=== PATIENT | female | born 1955 | race Caucasian/White ===

== ENCOUNTER 2016-05-21 07:52 | Emergency (ER) | payer OTHER ==
[~2016-05-21] VITALS: Ht 162.6 cm; Wt 61.2 kg
[2016-05-21 07:58] VITALS: BP 137/94; PULSE 66; RESP 18; TEMP 98.2; O2SAT 96
--- NOTE | 2016-05-21 08:00 | NUR ---
Pt report received from JOSÉ MANUEL Laguerre. Pt placed to ER bed 03 and to gown. Pt c/o LLQ abd pain that radiates to Left back. +Nause, -vomiting, -diarrhea. Family member at bedside.
--- NOTE | 2016-05-21 08:10 | NUR ---
Dr. Javier at bedside to assess pt.
[2016-05-21] MEDS ORDERED: DIPHENHYDRAMINE INJ 50 MG/ML VIAL IVP ONE (08:15)
[2016-05-21] MEDS ORDERED: PIPERACILLIN/TAZO 3.38 GM in NS 50 ML IV ONE (08:15)
[2016-05-21] MEDS ORDERED: MORPHINE 4 MG/ML INJ. SYRINGE IVP ONE (08:15)
[2016-05-21] MEDS ORDERED: PIPERACILLIN/TAZOBACTAM 3.375 GM/VIAL (ZOSYN) IV ONE (08:31)
[2016-05-21 08:40] LABS: HEMATOCRIT 37.1 % (36-48); HEMOGLOBIN 12.5 g/dL (12.0-16.0); MEAN CORPUSCULAR HEMOGLOBIN 31 pg (27-31); MEAN CORPUSCULAR HGB CONC 34 % (32-36); MEAN CORPUSCULAR VOLUME 92 fL (79.0-98.0); PLATELET COUNT (AUTO) 252 K/uL (130-430); RED BLOOD CELL COUNT(AUTO) 4.04 MIL/uL (4.2-6.2); RED CELL DISTRIBUTION WIDTH 13.4 % (9.0-15.0); WHITE BLOOD COUNT (AUTO) 7.1 K/uL (4.8-10.8)
[2016-05-21 08:41] LABS: BASOPHILS % (AUTO) 0.2 % (0.0-2.0); EOSINOPHILS % (AUTO) 0.3 % (0.0-4.0); LYMPHOCYTES # (AUTO) 0.9 K/uL (1.0-5.5); MONOCYTES # (AUTO) 0.3 K/uL (0.0-1.0); MONOCYTES % (AUTO) 3.6 % (1.7-9.3); NEUTROPHILS # (AUTO) 5.9 K/uL (1.8-7.7); NEUTROPHILS % (AUTO) 82.9 % (40.0-70.0)
[2016-05-21 08:42] LABS: PROTHROMBIN TIME 11.1 SECS (9.5-12.5)
[2016-05-21 08:44] LABS: CREATININE 0.83 mg/dL (0.55-1.30); POTASSIUM 3.8 mmol/L (3.5-5.1)
[2016-05-21 08:52] LABS: TOTAL BILIRUBIN 0.5 mg/dL (0.0-1.0); TOTAL PROTEIN, SERUM 7.6 g/dL (6.4-8.3)
[2016-05-21 09:58] VITALS: BP 128/76; PULSE 80; RESP 20; TEMP 98.2; O2SAT 100
--- NOTE | 2016-05-21 09:58 | NUR ---
Patient given written and verbal discharge instructions and verbalizes understanding. ER MD discussed with patient the results and treatment provided. Patient in stable condition. ID arm band removed. IV catheter removed intact and dressing applied, no active bleeding. Rx of Promethizine and codeine, Augmentin given. Patient educated on pain management and to follow up with PMD. Pain Scale 0/10. Opportunity for questions provided and answered.
== END 2016-05-21 09:58 | disposition home or self-care (01) ==
LOC: SED 07:52
DX: N20.0 Calculus of kidney (principal); I10 Essential (primary) hypertension
CPT/HCPCS: 36415; 71010; 74176; 80053; 83605; 83690; 85025; 85610; 87040; 96365; 96375; 99285; J1200; J2270; J2543

== ENCOUNTER 2016-11-27 08:20 | Emergency (ER) | payer OTHER ==
[~2016-11-27] VITALS: Ht 162.6 cm; Wt 61.2 kg
[2016-11-27 08:20] VITALS: BP_SYST 146
[2016-11-27 09:17] LABS: BASOPHILS % (AUTO) 0.5 % (0.0-2.0); CALCIUM 8.4 mg/dL (8.4-11.0); CREATININE 0.65 mg/dL (0.55-1.30); EOSINOPHILS # (AUTO) 0.1 K/uL (0.0-0.4); EOSINOPHILS % (AUTO) 2.2 % (0.0-4.0); HEMATOCRIT 37.7 % (36-48); HEMOGLOBIN 12.5 g/dL (12.0-16.0); LYMPHOCYTES # (AUTO) 0.9 K/uL (1.0-5.5); LYMPHOCYTES % (AUTO) 27.4 % (20.5-51.5); MEAN CORPUSCULAR HEMOGLOBIN 32 pg (27-31); MEAN CORPUSCULAR HGB CONC 33 % (32-36); MEAN CORPUSCULAR VOLUME 97 fL (79.0-98.0); MONOCYTES # (AUTO) 0.3 K/uL (0.0-1.0); MONOCYTES % (AUTO) 8.2 % (1.7-9.3); NEUTROPHILS # (AUTO) 1.9 K/uL (1.8-7.7); NEUTROPHILS % (AUTO) 61.7 % (40.0-70.0); PLATELET COUNT (AUTO) 178 K/uL (130-430); POTASSIUM 3.9 mmol/L (3.5-5.1); RED BLOOD CELL COUNT(AUTO) 3.91 MIL/uL (4.2-6.2); RED CELL DISTRIBUTION WIDTH 12.4 % (9.0-15.0); WHITE BLOOD COUNT (AUTO) 3.2 K/uL (4.8-10.8)
[2016-11-27 09:22] LABS: ALBUMIN 3.4 g/dL (3.4-4.8); TOTAL BILIRUBIN 0.4 mg/dL (0.0-1.0); TOTAL PROTEIN, SERUM 6.7 g/dL (6.4-8.3)
[2016-11-27 09:41] VITALS: BP_SYST 146
== END 2016-11-27 09:41 | disposition home or self-care (01) ==
LOC: SED 08:20
DX: M54.12 Radiculopathy, cervical region (principal); I10 Essential (primary) hypertension; Z90.89 Acquired absence of other organs
CPT/HCPCS: 36415; 72050-TC; 80053; 84484; 85025; 93005; 99285

== ENCOUNTER 2019-02-20 12:40 | Inpatient (IN) | payer BC, OTHER ==
[~2019-02-20] VITALS: Ht 162.6 cm; Wt 76.7 kg
[2019-02-20 12:40] VITALS: BP_SYST 156
[2019-02-20] MEDS ORDERED: NACL 0.9% 1,000 ML IV ONE (12:59)
[2019-02-20] MEDS ORDERED: KETOROLAC TROMETHAMINE 30 MG VIAL IVP ONE (13:00)
[2019-02-20 13:29] LABS: BASOPHILS % (AUTO) 0.6 % (0.0-2.0); BILIRUBIN,URINE NEGATIVE (NEGATIVE); BLOOD, URINE 3+ (NEGATIVE); COLOR,URINE YELLOW (YELLOW); EOSINOPHILS # (AUTO) 0.1 K/uL (0.0-0.4); EOSINOPHILS % (AUTO) 1.8 % (0.0-4.0); GLUCOSE,URINE NEGATIVE (NEGATIVE); HEMATOCRIT 35.7 % (36-48); KETONES,URINE NEGATIVE (NEGATIVE); LEUKOCYTE ESTERASE ,URINE TRACE (NEGATIVE); LYMPHOCYTES # (AUTO) 1.2 K/uL (1.0-5.5); MEAN CORPUSCULAR HEMOGLOBIN 33 pg (27-31); MEAN CORPUSCULAR HGB CONC 34 % (32-36); MEAN CORPUSCULAR VOLUME 98 fL (79.0-98.0); MONOCYTES # (AUTO) 0.3 K/uL (0.0-1.0); MONOCYTES % (AUTO) 6.7 % (1.7-9.3); NEUTROPHILS # (AUTO) 2.7 K/uL (1.8-7.7); NEUTROPHILS % (AUTO) 62.9 % (40.0-70.0); NITRITE, URINE NEGATIVE (NEGATIVE); PH,URINE 6.5 (5.0-8.0); PLATELET COUNT (AUTO) 244 K/uL (130-430); PROTEIN URINE 1+ (NEGATIVE); RED BLOOD CELL COUNT(AUTO) 3.66 MIL/uL (4.2-6.2); RED CELL DISTRIBUTION WIDTH 13.1 % (9.0-15.0); UROBILINOGEN,URINE 0.2 (0.2-1.0); WHITE BLOOD COUNT (AUTO) 4.3 K/uL (4.8-10.8)
[2019-02-20 13:30] LABS: CLARITY/URINE HAZY (CLEAR)
[2019-02-20 13:49] LABS: CALCIUM 8.7 mg/dL (8.4-11.0); CREATININE 0.74 mg/dL (0.55-1.30); POTASSIUM 3.9 mmol/L (3.5-5.1)
[2019-02-20 13:53] LABS: BACTERIA,URINE FEW /HPF (None Seen); MUCUS,URINE 1+ /LPF (None Seen); RBC,URINE 80-100 /HPF (0-3); WBC,URINE 0-3 /HPF (0-3)
[2019-02-20 13:55] LABS: ALBUMIN 3.6 g/dL (3.4-4.8); TOTAL BILIRUBIN 0.2 mg/dL (0.0-1.0)
[2019-02-20] MEDS ORDERED: KETOROLAC TROMETHAMINE 30 MG VIAL ONE (14:21)
[2019-02-20] MEDS ORDERED: cefTRIAXone 1 GM IVPB PREMIX 50 ML IV ONE (14:30)
[2019-02-20] MEDS ORDERED: MORPHINE 4 MG/ML INJ. SYRINGE IVP ONE (15:30)
[2019-02-20] MEDS ORDERED: ONDANSETRON HCL 4 MG/2 ML VIAL IVP ONE (15:30)
[2019-02-20] MEDS ORDERED: KLO1 PO (16:10)
[2019-02-20] MEDS ORDERED: ESCI20TA PO (16:13)
[2019-02-20] MEDS ORDERED: ATEN100T PO (16:13)
[2019-02-20] MEDS ORDERED: DICL75TA5 PO (16:13)
[2019-02-20] MEDS ORDERED: LISI40TA4 PO (16:15)
[2019-02-20] MEDS ORDERED: ASA81 PO (16:15)
[2019-02-20 16:42] VITALS: BP_SYST 137
[2019-02-20] MEDS: D5NS 1,000 ML IV SCH (18:09)
[2019-02-20] MEDS ORDERED: HYDROcodone/ACETAMIN 5-325 MG TAB (NORCO/ VICODIN) PO PRN ×2 (19:45→23:45)
[2019-02-20] MEDS ORDERED: ACETAMINOPHEN 325 MG TABLET PO PRN ×2 (19:45→23:45)
[2019-02-20 20:00] VITALS: BP_SYST 130
[2019-02-20] MEDS: HYDROcodone/ACETAMIN 10-325 MG TAB PO PRN (20:39)
[2019-02-20] MEDS ORDERED: ONDANSETRON HCL 4 MG/2 ML VIAL IVP PRN (23:45)
[2019-02-20] MEDS ORDERED: HYDROcodone/ACETAMIN 10-325 MG TAB PO PRN (23:45)
[2019-02-20] MEDS ORDERED: cefTRIAXone 1 GM IVPB PREMIX 50 ML IV SCH (23:45)
[2019-02-21] MEDS ORDERED: clonazePAM 0.5 MG TABLET PO PRN (02:00)
[2019-02-21] MEDS: HYDROcodone/ACETAMIN 10-325 MG TAB PO PRN (04:26)
[2019-02-21] MEDS: D5NS 1,000 ML IV SCH ×3 (04:27→21:45)
[2019-02-21 06:52] LABS: BASOPHILS % (AUTO) 0.9 % (0.0-2.0); EOSINOPHILS # (AUTO) 0.1 K/uL (0.0-0.4); EOSINOPHILS % (AUTO) 2.2 % (0.0-4.0); HEMATOCRIT 33.1 % (36-48); HEMOGLOBIN 11.3 g/dL (12.0-16.0); LYMPHOCYTES # (AUTO) 1.5 K/uL (1.0-5.5); LYMPHOCYTES % (AUTO) 38.4 % (20.5-51.5); MEAN CORPUSCULAR HEMOGLOBIN 34 pg (27-31); MEAN CORPUSCULAR HGB CONC 34 % (32-36); MEAN CORPUSCULAR VOLUME 98 fL (79.0-98.0); MONOCYTES # (AUTO) 0.3 K/uL (0.0-1.0); MONOCYTES % (AUTO) 6.6 % (1.7-9.3); NEUTROPHILS % (AUTO) 51.9 % (40.0-70.0); PLATELET COUNT (AUTO) 208 K/uL (130-430); RED BLOOD CELL COUNT(AUTO) 3.36 MIL/uL (4.2-6.2); RED CELL DISTRIBUTION WIDTH 13.2 % (9.0-15.0); WHITE BLOOD COUNT (AUTO) 3.9 K/uL (4.8-10.8)
[2019-02-21 07:01] LABS: ALBUMIN 3.2 g/dL (3.4-4.8); CALCIUM 7.7 mg/dL (8.4-11.0); CREATININE 0.77 mg/dL (0.55-1.30); PHOSPHORUS 4.1 mg/dL (2.7-4.5); POTASSIUM 3.5 mmol/L (3.5-5.1); TOTAL BILIRUBIN 0.2 mg/dL (0.0-1.0)
[2019-02-21 08:00] VITALS: BP_SYST 117
[2019-02-21] MEDS: DICLOFENAC SODIUM 25 MG TABLET.DR PO SCH ×2 (09:00→21:39)
[2019-02-21] MEDS ORDERED: CITALOPRAM HYDROBROMIDE 20 MG TABLET PO SCH ×2 (09:00→21:00)
[2019-02-21] MEDS ORDERED: ASPIRIN 81 MG TAB.CHEW PO SCH ×2 (09:00→21:00)
[2019-02-21] MEDS ORDERED: COMMUNICATION ORDER XX ONE (11:15)
[2019-02-21] MEDS: LISINOPRIL 20 MG TABLET PO SCH (12:12)
[2019-02-21] MEDS: ATENOLOL 50 MG TABLET (TENORMIN) PO SCH (12:13)
[2019-02-21] MEDS ORDERED: IOHEXOL 100 ML IV ONE (14:01)
[2019-02-21] MEDS: metroNIDAZOLE 250 mg/NS 50 ML IV SCH ×2 (14:30→21:40)
[2019-02-21] MEDS ORDERED: cefTRIAXone 1 GM in D5W 50 ML IV ONE (15:00)
[2019-02-21] MEDS ORDERED: cefTRIAXone 1 GM IVPB PREMIX 50 ML IV SCH (15:00)
[2019-02-21 16:27] VITALS: BP_SYST 117
[2019-02-22] MEDS: metroNIDAZOLE 250 mg/NS 50 ML IV SCH ×2 (04:34→14:13)
[2019-02-22 07:20] LABS: ANION GAP 4 (5-15); BASOPHILS % (AUTO) 0.7 % (0.0-2.0); CHLORIDE 106 mmol/L (98-107); CREATININE 0.69 mg/dL (0.55-1.30); EOSINOPHILS # (AUTO) 0.1 K/uL (0.0-0.4); EOSINOPHILS % (AUTO) 3.3 % (0.0-4.0); GLUCOSE 88 mg/dL (70-99); HEMATOCRIT 32.7 % (36-48); HEMOGLOBIN 11.5 g/dL (12.0-16.0); LYMPHOCYTES # (AUTO) 1.3 K/uL (1.0-5.5); MEAN CORPUSCULAR HEMOGLOBIN 34 pg (27-31); MEAN CORPUSCULAR HGB CONC 35 % (32-36); MEAN CORPUSCULAR VOLUME 97 fL (79.0-98.0); MONOCYTES # (AUTO) 0.3 K/uL (0.0-1.0); MONOCYTES % (AUTO) 8.1 % (1.7-9.3); NEUTROPHILS # (AUTO) 2.5 K/uL (1.8-7.7); NEUTROPHILS % (AUTO) 56.9 % (40.0-70.0); PLATELET COUNT (AUTO) 192 K/uL (130-430); POTASSIUM 3.8 mmol/L (3.5-5.1); RED BLOOD CELL COUNT(AUTO) 3.37 MIL/uL (4.2-6.2); SODIUM SERUM 139 mmol/L (136-145); UREA NITROGEN, BLOOD 9 mg/dL (8-21); WHITE BLOOD COUNT (AUTO) 4.3 K/uL (4.8-10.8)
[2019-02-22 07:52] LABS: C-REACTIVE PROTEIN QUANT < 0.2 mg/dL (0-0.5); GFR AFRICAN AMERICAN 111 mL/min (>90)
[2019-02-22 08:00] VITALS: BP_SYST 118
[2019-02-22 08:18] LABS: ERYTHROCYTE SEDIMENTATION RATE 8 MM/HR (0-20)
[2019-02-22] MEDS: DICLOFENAC SODIUM 25 MG TABLET.DR PO SCH (09:00)
[2019-02-22] MEDS: LISINOPRIL 20 MG TABLET PO SCH (10:00)
[2019-02-22] MEDS: ATENOLOL 50 MG TABLET (TENORMIN) PO SCH (10:01)
[2019-02-22] MEDS: D5NS 1,000 ML IV SCH (10:07)
[2019-02-22] MEDS ORDERED: HYDR-4272 PO (13:37)
[2019-02-22] MEDS ORDERED: LEVO250T58 PO (13:37)
[2019-02-22 14:23] VITALS: BP_SYST 151
[2019-02-22 16:00] VITALS: BP_SYST 151
== END 2019-02-22 16:20 | disposition home or self-care (01) | DRG 690 ==
LOC: SED 12:40 → SMU 15:46
PROVIDERS: ADMIT Preventive Medicine Preventive Medicine/Occupational Environmental Medicine; ATTEND Preventive Medicine Preventive Medicine/Occupational Environmental Medicine
DX: N13.6 Pyonephrosis (principal); K57.90 Diverticulosis of intestine, part unspecified, without perforation or abscess without bleeding; K52.9 Noninfective gastroenteritis and colitis, unspecified; C02.9 Malignant neoplasm of tongue, unspecified; I10 Essential (primary) hypertension; Z79.82 Long term (current) use of aspirin; Z85.810 Personal history of malignant neoplasm of tongue; Z79.899 Other long term (current) drug therapy
CPT/HCPCS: 36415; 80048; 80053; 81000-TC; 83605; 83735-TC; 84100-TC; 85025; 85651-TC; 86140; 87040-TC; 87086; 96365; 96375; 99285; J0696; J1885; J2270; J2405; J3490; J7030; J7042; J7060; Q9967